=== PATIENT | female | born 1995 | race Caucasian/White ===

== ENCOUNTER → 2018-03-12 | Outpatient (CLI) | payer OTHER ==
[~2018-03-12] MED LIST: AMOX-559 PO; AMOX500T10 PO; DILT120C PO; ESCI20TA38 PO; ETON1VAG7 VG; HYDR-4309 PO; POTA20TA85 PO
== END ==
LOC: LAB 15:31
PROVIDERS: ATTEND Internal Medicine Cardiovascular Disease
DX: I47.1 Supraventricular tachycardia (principal)
CPT/HCPCS: 36415; 82310; 82374; 82435; 82565; 82947; 84132; 84295; 84520; 85027